=== PATIENT | female | born 2000 | race Caucasian/White ===

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

== ENCOUNTER 2018-10-02 11:25 | Emergency (ER) | payer BC ==
[2018-10-02 12:08] VITALS: BP 118/65
--- NOTE | 2018-10-02 12:57 | UC ---
Eye Complaint HPI - HPI Summary HPI Summary: Pt presents with c/o eye redness and discharged that began yesterday when waking. Pt states that when she woke yesterday morning, her right eye was red and was "crusted over". Pt went to [facility] services and told it was allergic conjunctivitis. Pt states that in 24 hours the right eye redness and discharge has improved/resolved but woke this morning left eye redness and discharge. Pt has not placed any drops in eye. - History of Current Complaint Chief Complaint: UCEye Stated Complaint: EYE REDNESS Time Seen by Provider: 10/02/18 12:16 Hx Obtained From: Patient Hx Last Menstrual Period: 09/30/18 ?: No Onset/Duration: Sudden Onset, Lasting Days, Still Present Timing: Days Severity Initially: Mild Severity Currently: Mild Pain Intensity: 0 Pain Scale Used: 0-10 Numeric Aggravating Factor(s): Nothing Alleviating Factor(s): Nothing Associated Signs And Symptoms: Positive: Drainage (Purulent) - Risk Factors Penetrating Injury Risk Factor: Negative Globe Rupture Risk Factors: Negative Acute Glaucoma Risk Factors: Negative Optic Artery Occlusion Risk Factors: Negative - Allergies/Home Medications Allergies/Adverse Reactions: Allergies Allergy/AdvReac Type Severity Reaction Status Date / Time No Known Allergies Allergy Verified 10/02/18 12:03 Home Medications: Home Medications Glycopyrrolate TAB(NF) [Robinul TAB(NF)] 1 mg PO TID 10/02/18 [History Confirmed 10/02/18] PMH/Surg Hx/FS Hx/Imm Hx Previously Healthy: Yes - Surgical History Surgical History: None - Family History Known Family History: Positive: Cardiac Disease - Social History Occupation: Student Lives: Dormitory/Roommates Alcohol Use: Occasionally Substance Use Type: None Smoking Status (MU): Never Smoked Tobacco Have You Smoked in the Last Year: No - Immunization History Vaccination Up to Date: Yes Review of Systems All Other Systems Reviewed And Are Negative: Yes Constitutional: Positive: Negative Skin: Positive: Negative Eyes: Positive: Drainage - left, Eye Redness - left ENT: Positive: Negative Respiratory: Positive: Negative Cardiovascular: Positive: Negative Gastrointestinal: Positive: Negative Genitourinary: Positive: Negative Motor: Positive: Negative Neurovascular: Positive: Negative Musculoskeletal: Positive: Negative Neurological: Positive: Negative Psychological: Positive: Negative Is Patient Immunocompromised?: No Physical Exam Triage Information Reviewed: Yes Appearance: Well-Appearing Vital Signs: Initial Vital Signs Temp 97.9 F 10/02/18 12:02 Pulse 50 10/02/18 12:02 Resp 16 10/02/18 12:02 BP 118/65 10/02/18 12:02 Pulse Ox 100 10/02/18 12:02 Vital Signs Reviewed: Yes Eyes: Positive: Conjunctiva Inflamed - left, Discharge - left, white ENT Exam: Normal Dental Exam: Normal Neck exam: Normal Respiratory: Positive: No respiratory distress Musculoskeletal Exam: Normal Neurological Exam: Normal Psychological Exam: Normal Skin Exam: Normal Eye Complaint Course/Dx - Course Course Of Treatment: I discussed with the pt the different types of conjunctivitis and advised her to try the antibiotic drops for 24- 48 hours and if no improvement then to discontinue and to try OTC antihistamine eye drops. Pt verbalized understanding and agreed to plan of care. Pt was also advised to f/u with eye provider. - Differential Dx/Diagnosis Differential Diagnosis/HQI/PQRI: Conjunctivitis, Other - scleritis Provider Diagnosis: Conjunctivitis Discharge - Sign-Out/Discharge Documenting (check all that apply): Patient Departure All imaging exams completed and their final reports reviewed: No Studies - Discharge Plan Condition: Stable Disposition: HOME Prescriptions: Ofloxacin 0.3% (Eye Drop) [Ocuflox OPTH 0.3% (Eye Drop)] 2 drop LEFT EYE Q8H 7 Days #1 btl Patient Education Materials: Conjunctivitis (ED) Referrals: [facility] [place] [facility] [Outside] - If Needed Rehan Vera OD [Doctor of Osteopathy] - If Needed No Primary Care Phys,NOPCP [Primary Care Provider] - Additional Instructions: Please follow up with your PCP and /or eye care provider as needed. Please discontinue the antibiotic eye drops if you do not see any improvement in the next 2-3 days and try the over the counter eye medication Zatidor and use as directed per packaging. - Billing Disposition and Condition Condition: STABLE Disposition: Home
== END 2018-10-02 12:37 | disposition home or self-care (01) ==
LOC: UCCORT 11:25
DX: H10.32 Unspecified acute conjunctivitis, left eye (principal)
CPT/HCPCS: 99212; G0463

== ENCOUNTER 2019-03-13 09:49 | Emergency (ER) | payer BC ==
[2019-03-13 10:38] VITALS: BP 110/55
--- NOTE | 2019-03-13 11:00 | UC ---
Throat Pain/Nasal Pablo HPI - HPI Summary HPI Summary: Patient is a 18-year-old female presenting with right-sided anterior neck pain x1 day. Patient notes she has had cold for the past few days that is resolving. Believes on of her glands has become more swollen over the past day. Notes discomfort with swallowing food. Denies sore throat. Denies concern for strep throat. Denies fever and chills. Denies n/v/d. States she took 200mg of aleve this morning without relief. - History of Current Complaint Chief Complaint: UCUpperExtremity Stated Complaint: RT SIDE NECK SWELLING, PAIN IN THROAT Hx Obtained From: Patient Hx Last Menstrual Period: 02/19/19 Onset/Duration: Gradual Onset, Lasting Days Severity: Moderate Pain Intensity: 5 Pain Scale Used: 0-10 Numeric - Allergies/Home Medications Allergies/Adverse Reactions: Allergies Allergy/AdvReac Type Severity Reaction Status Date / Time No Known Allergies Allergy Verified 03/13/19 10:27 Home Medications: Home Medications Ibuprofen TAB* [Motrin TAB* 400 MG] 400 mg PO ONCE PRN 03/13/19 [History Confirmed 03/13/19] PMH/Surg Hx/FS Hx/Imm Hx Previously Healthy: Yes - Surgical History Surgical History: None - Family History Known Family History: Positive: Cardiac Disease, Non-Contributory - Social History Alcohol Use: Occasionally Substance Use Type: None Smoking Status (MU): Never Smoked Tobacco Have You Smoked in the Last Year: No - Immunization History Vaccination Up to Date: Yes Review of Systems All Other Systems Reviewed And Are Negative: Yes Constitutional: Positive: Negative. Negative: Fever, Chills Eyes: Positive: Negative ENT: Positive: Nasal Discharge, Sinus Congestion. Negative: Ear Ache, Sinus Pain/Tenderness Respiratory: Positive: Negative. Negative: Shortness Of Breath, Cough Cardiovascular: Positive: Negative Gastrointestinal: Positive: Negative Musculoskeletal: Positive: Myalgia Neurological: Positive: Negative. Negative: Headache, Paresthesia, Numbness Physical Exam Triage Information Reviewed: Yes Appearance: Well-Appearing, No Pain Distress, Well-Nourished Vital Signs: Initial Vital Signs Temp 98.3 F 03/13/19 10:33 Pulse 63 03/13/19 10:33 Resp 18 03/13/19 10:33 BP 110/55 03/13/19 10:33 Pulse Ox 99 03/13/19 10:33 Vital Signs Reviewed: Yes Eyes: Positive: Conjunctiva Clear ENT: Positive: Hearing grossly normal, Pharynx normal, TMs normal, Uvula midline. Negative: Pharyngeal erythema, Nasal congestion, Nasal drainage, TM dull, TM red, Tonsillar swelling, Tonsillar exudate, Sinus tenderness Neck: Positive: Supple, Tenderness @ - right anterior neck, Enlarged Nodes @ - right submandibular. Negative: Nuchal Rigidity Respiratory Exam: Normal Respiratory: Positive: Lungs clear, Normal breath sounds, No respiratory distress Cardiovascular Exam: Normal Cardiovascular: Positive: RRR Musculoskeletal Exam: Normal Musculoskeletal: Positive: Strength Intact, ROM Intact Neurological: Positive: Alert Psychological: Positive: Age Appropriate Behavior Skin Exam: Normal, Other - no erythema or ecchymosis noted Throat Pain/Nasal Course/Dx - Course Course Of Treatment: Discussed lymphadenopathy and most likely infectious source from recent cold symptoms. Instructed her to take naproxen as prescribed for pain relief. Instructed to apply warm compresses for relief as well. Directed her to follow up with her PCP if symptoms persist or to go to the emergency room if they worsen. Patient voiced understanding and agreed to the treatment plan. - Differential Dx/Diagnosis Provider Diagnosis: Submandibular gland tenderness, Submandibular lymphadenopathy Discharge ED - Sign-Out/Discharge Documenting (check all that apply): Patient Departure All imaging exams completed and their final reports reviewed: No Studies - Discharge Plan Condition: Stable Disposition: HOME Prescriptions: Naproxen TAB* [Naprosyn 250 mg TAB*] 500 mg PO Q8H PRN #30 tab PRN Reason: Pain - Moderate Patient Education Materials: Lymphadenopathy (ED) Referrals: [facility] [Outside] - If Needed [facility] [place] [facility] [Outside] - If Needed Additional Instructions: As discussed, your swollen lymph node is likely caused by the common cold you described. You may take naproxen as prescribed for pain relief. DO NOT take ibuprofen, aleve, or other NSAIDS if you are taking naproxen. You may also apply warm compresses for pain relief. Follow up with your PCP or one of the referrals listed below if your symptoms persist. Go to the emergency room if you experience severe pain, fever, chills, nausea, vomiting, or difficulty breathing or swallowing your saliva. - Billing Disposition and Condition Condition: STABLE Disposition: Home
== END 2019-03-13 11:21 | disposition home or self-care (01) ==
LOC: UCCORT 09:49
DX: K11.8 Other diseases of salivary glands (principal); R59.0 Localized enlarged lymph nodes
CPT/HCPCS: 99212; G0463